=== PATIENT | female | born 1930 | race Caucasian/White ===

== ENCOUNTER 2019-01-17 11:40 | Inpatient (IN) | payer MEDICARE ==
[2019-01-17] MEDS ORDERED: fentaNYL 100 MCG/2 ML SDV IVPUSH ONE (11:49)
--- NOTE | 2019-01-17 11:54 | EDM.PDOC ---
ED HPI GENERAL MEDICAL PROBLEM - General Chief Complaint: Lower Extremity Injury/Pain Stated Complaint: FALL VIA NORTH Time Seen by Provider: 01/17/19 11:40 Source of Information: Reports: Patient, EMS History Limitations: Reports: No Limitations - History of Present Illness INITIAL COMMENTS - FREE TEXT/NARRATIVE: 88-year-old female who was getting out of the bathtub or shower, she was holding onto a faucet for balance in the rug slipped from under her foot. She fell onto her left side, sustaining an injury to the left shoulder and left hip. She was unable to get up so EMS was called, she was transported in to the emergency room with a sling on her left arm and given fentanyl IM for pain control. She is not having problems breathing, has no nausea or vomiting but is having intense pain in her left shoulder and left hip. Onset: Sudden Duration: Hour(s): (Within the last 2 hours) Location: Reports: Upper Extremity, Left, Lower Extremity, Left Quality: Reports: Sharp, Stabbing Worsens with: Reports: Movement Associated Symptoms: Reports: No Other Symptoms Left Arm Pain Score (Numeric/FACES): 8 - Related Data Allergies Allergy/AdvReac Type Severity Reaction Status Date / Time hydrocodone Allergy Hives Verified 01/17/19 13:21 nitrofurantoin Allergy Hives Verified 01/17/19 13:21 sulfamethazine Allergy Hives Verified 01/17/19 13:21 teriparatide Allergy Hives Verified 01/17/19 13:21 tetracycline Allergy Hives Verified 01/17/19 13:21 trovafloxacin Allergy Hives Verified 01/17/19 13:21 Home Meds: Home Meds Aspirin 81 mg PO DAILY 01/17/19 [History] Ca Carbonate/Vitamin D3/Vit K [Citracal Soft Chew] 1 each PO DAILY 01/17/19 [ History] Cyanocobalamin (Vitamin B12) [Vitamin B12] 100 mcg PO DAILY 01/17/19 [History] Cyclobenzaprine [Flexeril] 10 mg PO TID PRN 01/17/19 [History] Ferrous Sulfate 325 mg PO DAILY 01/17/19 [History] Furosemide [Lasix] 20 mg PO DAILY 01/17/19 [History] L.acidoph,Paracasei, B.lactis [Probiotic] 1 each PO DAILY 01/17/19 [History] Lmfol Ca/Acetyl/Mb12/Algal Oil [Cerefolin Nac Caplet] 1 each PO DAILY 01/17/19 [ History] Melatonin 10 mg PO BEDTIME 01/17/19 [History] Metoprolol Tartrate 25 mg PO BID 01/17/19 [History] Olmesartan Medoxomil [Benicar] 20 mg PO DAILY 01/17/19 [History] Oxybutynin 5 mg PO DAILY 01/17/19 [History] Triamcinolone Acetonide [Triamcinolone Acetonide 0.1% Crm] 1 applic TOP TID [History] Vit A/Vit C/Vit E/Zinc/Copper [Preservision] 1 each PO DAILY 01/17/19 [History] Review of Systems - Review of Systems Review Of Systems: See Below Constitutional: Denies: Fever Respiratory: Reports: No Symptoms Cardiovascular: Reports: No Symptoms GI/Abdominal: Reports: No Symptoms Skin: Denies: Bruising Neurological: Denies: Headache ED EXAM, GENERAL - Physical Exam Exam: See Below Exam Limited By: No Limitations General Appearance: Alert, Moderate Distress (Very uncomfortable) Eye Exam: Bilateral Eye: EOMI Head: Atraumatic Neck: Non-Tender Respiratory/Chest: No Respiratory Distress, Lungs Clear GI/Abdominal: Soft, Non-Tender Extremities: Other (Intensely painful to palpation around the proximal left humerus and left hip, the left leg is shortened and externally rotated) Neurological: Alert, Oriented Psychiatric: Anxious Skin Exam: Warm, Dry Course - Vital Signs Last Recorded V/S: Last Vital Signs Temp 95.7 F 01/17/19 11:51 Pulse 68 01/17/19 11:51 Resp 16 01/17/19 11:51 BP 142/84 H 01/17/19 11:51 Pulse Ox 97 01/17/19 11:51 - Orders/Labs/Meds Orders: Active Orders 24 hr Category Date Time Status Patient Status [ADT] Routine ADT 01/17/19 13:37 Active EKG Documentation Completion [RC] ASDIRECTED Care 01/17/19 14:32 Active Soriano Catheter Insertion [Insert Urinary Catheter] [OM. Care 01/17/19 12:30 Ordered PC] Q24H Urinary Catheter Assessment [RC] ASDIRECTED Care 01/17/19 12:16 Active Fluoro Up To 1Hr [CR] Routine Exams 01/17/19 00:00 Taken PATIENT RETYPE [BBK] Routine Lab 01/17/19 14:50 Results RED BLOOD CELLS LP [BBK] Routine Lab 01/17/19 14:50 Results TYPE AND SCREEN [BBK] Routine Lab 01/17/19 14:50 Results EKG 12 Lead [EK] Routine Ther 01/17/19 14:32 Ordered Labs: Laboratory Tests 01/17/19 01/17/19 01/17/19 Range/Units 12:45 12:45 14:50 WBC 10.7 (4.5-11.0) K/uL RBC 3.57 (3.30-5.50) M/uL Hgb 10.8 L (12.0-15.0) g/dL Hct 33.7 L (36.0-48.0) % MCV 94 (80-98) fL MCH 30 (27-31) pg MCHC 32 (32-36) % Plt Count 282 (150-400) K/uL Neut % (Auto) 83 H (36-66) % Lymph % (Auto) 8 L (24-44) % [place] % (Auto) 6 (2-6) % Eos % (Auto) 2 (2-4) % Baso % (Auto) 1 (0-1) % Sodium 137 L (140-148) mmol/L Potassium 4.6 (3.6-5.2) mmol/L Chloride 101 (100-108) mmol/L Carbon Dioxide 29 (21-32) mmol/L Anion Gap 11.6 (5.0-14.0) mmol/L BUN 28 H (7-18) mg/dL Creatinine 1.0 (0.6-1.0) mg/dL Est Cr Clr Drug Dosing 30.76 mL/min Estimated GFR (MDRD) 52 L (>60) Glucose 129 H (74-106) mg/dL Calcium 8.9 (8.5-10.1) mg/dL Total Bilirubin 0.3 (0.2-1.0) mg/dL AST 23 (15-37) U/L ALT 21 (12-78) U/L Alkaline Phosphatase 62 (46-116) U/L Total Protein 6.8 (6.4-8.2) g/dL Albumin 3.5 (3.4-5.0) g/dL Globulin 3.3 (2.3-3.5) g/dL Albumin/Globulin Ratio 1.1 L (1.2-2.2) Blood Type O POSITIVE Gel Antibody Screen Negative Crossmatch See Detail Meds: Medications Discontinued Medications Generic Name Dose Route Start Last Admin Trade Name Edgar PRN Reason Stop Dose Admin Bupivacaine HCl Confirm 01/17/19 13:40 Marcaine 0.5% Administered 01/17/19 13:41 Dose 50 ml .ROUTE .STK-MED ONE Cefazolin Sodium Confirm 01/17/19 14:43 Ancef Administered 01/17/19 14:44 Dose 2 gm .ROUTE .STK-MED ONE Dexamethasone Confirm 01/17/19 13:47 Dexamethasone Administered 01/17/19 13:48 Dose 4 mg .ROUTE .STK-MED ONE Fentanyl 50 mcg 01/17/19 11:49 01/17/19 11:55 Sublimaze IVPUSH 01/17/19 11:50 50 mcg ONETIME ONE Administration Fentanyl Confirm 01/17/19 13:48 Sublimaze Administered 01/17/19 13:49 Dose 250 mcg .ROUTE .STK-MED ONE Glycopyrrolate Confirm 01/17/19 13:47 Robinul Administered 01/17/19 13:48 Dose 1 mg .ROUTE .STK-MED ONE Neostigmine Methylsulfate Confirm 01/17/19 13:47 Neostigmine Administered 01/17/19 13:48 Dose 5 mg .ROUTE .STK-MED ONE Ondansetron HCl Confirm 01/17/19 13:47 Zofran Administered 01/17/19 13:48 Dose 4 mg .ROUTE .STK-MED ONE Propofol Confirm 01/17/19 13:47 Diprivan 20 Ml Administered 01/17/19 13:48 Dose 200 mg .ROUTE .STK-MED ONE Rocuronium [place] Confirm 01/17/19 13:47 Zemuron Administered 01/17/19 13:48 Dose 50 mg .ROUTE .STK-MED ONE Succinylcholine Chloride Confirm 01/17/19 13:47 Quelicin Administered 01/17/19 13:48 Dose 200 mg .ROUTE .STK-MED ONE - Re-Assessments/Exams Free Text/Narrative Re-Assessment/Exam: 01/17/19 11:53 CBC BMP were obtained and an x-ray of the left humerus and left hip were obtained. She was given 50 g of fentanyl IV. 01/17/19 13:10 X-rays confirmed an intertrochanteric fracture of the left hip which is comminuted and displaced, and also a spiral midshaft fracture of the left humerus. A Soriano was placed and clear urine was released. Orthopedics was consult at, after reviewing the x-rays Dr. De Jesus accepted admission for surgical repair. Departure - Departure Time of Disposition: 14:47 Disposition: Admitted As Inpatient 66 Clinical Impression: Intertrochanteric fracture of left hip Qualifiers: Encounter type: initial encounter Fracture type: closed Fracture alignment: displaced Qualified Code(s): S72.142A - Displaced intertrochanteric fracture of left femur, initial encounter for closed fracture Left humeral fracture Qualifiers: Encounter type: initial encounter Humerus Location: shaft Fracture type: closed Fracture morphology: spiral Fracture alignment: displaced Qualified Code( s): S42.342A - Displaced spiral fracture of shaft of humerus, left arm, initial encounter for closed fracture - Discharge Information - My Orders Last 24 Hours: My Active Orders 01/17/19 12:16 Urinary Catheter Assessment [RC] ASDIRECTED 01/17/19 12:30 Soriano Catheter Insertion [Insert Urinary Catheter] [OM.PC] Q24H 01/17/19 13:37 Patient Status [ADT] Routine - Assessment/Plan Last 24 Hours: My Active Orders 01/17/19 12:16 Urinary Catheter Assessment [RC] ASDIRECTED 01/17/19 12:30 Soriano Catheter Insertion [Insert Urinary Catheter] [OM.PC] Q24H 01/17/19 13:37 Patient Status [ADT] Routine
[2019-01-17] MEDS ORDERED: Bupivacaine 0.5% 50 ML MDV ONE (13:40)
[2019-01-17] MEDS ORDERED: Succinylcholine 200 MG/10 ML MDV ONE (13:47)
[2019-01-17] MEDS ORDERED: Glycopyrrolate 0.2 MG/ML 5 ML MDV ONE (13:47)
[2019-01-17] MEDS ORDERED: Dexamethasone 4 MG/ML SDV ONE (13:47)
[2019-01-17] MEDS ORDERED: Neostigmine Methylsulfate 1 MG/ML 5 ML Syringe ONE (13:47)
[2019-01-17] MEDS ORDERED: Ondansetron 4 MG/2 ML SDV ONE (13:47)
[2019-01-17] MEDS ORDERED: Rocuronium 50 MG/5 ML Vial ONE (13:47)
[2019-01-17] MEDS ORDERED: Propofol 200 MG/20 ML SDV ONE (13:47)
[2019-01-17] MEDS ORDERED: fentaNYL 250 MCG/5 ML SDV ONE (13:48)
--- NOTE | 2019-01-17 13:52 | CR ---
Pelvis 1V or 2V CLINICAL HISTORY: Left hip pain FINDINGS: Patient is a comminuted displaced intertrochanteric fracture of left femur. There is abduction of the proximal aspect. Pelvis appears intact. There is degenerative changes in the lumbar spine IMPRESSION: Comminuted displaced intertrochanteric fracture left femur
--- NOTE | 2019-01-17 13:54 | CR ---
Humerus Lt CLINICAL HISTORY: Fall, pain FINDINGS: There is a displaced to the fracture of the left humerus at the junction of the proximal and middle third. There is angulation glenohumeral joint and elbow appear intact IMPRESSION: Displaced fracture left humerus
[2019-01-17] MEDS ORDERED: ceFAZolin 1 GM Vial ONE (14:43)
[2019-01-17] MEDS ORDERED: Magnesium Hydroxide 400 MG/5 ML Susp 30 ML Cup PO PRN (18:34)
[2019-01-17] MEDS ORDERED: Ondansetron 4 MG/2 ML SDV IVPUSH PRN (18:34)
[2019-01-17] MEDS ORDERED: Morphine 2 MG/ML Syringe IVPUSH PRN (18:34)
[2019-01-17] MEDS: Sodium Chloride 0.9% 1,000 ML IV SCH (20:13)
[2019-01-17] MEDS ORDERED: Non-Formulary Medication 1 Each (Melatonin [Melatonin] 10 MG) PO SCH ×2 (21:00)
[2019-01-17] MEDS: Acetaminophen/oxyCODONE 325-5 MG Tab PO PRN (21:28)
[2019-01-17] MEDS: Metoprolol Tartrate 25 MG Tab PO SCH ×2 (21:29→21:37)
[2019-01-17] MEDS ORDERED: Sodium Chloride 0.9% 500 ML IV ONE (21:51)
--- NOTE | 2019-01-17 22:59 | CRLCR ---
INDICATION: Postop ORIF left humerus fracture TECHNIQUE: Two views left humerus, 10:03 p.m. COMPARISON: 12:05 p.m. FINDINGS: Bones: Internal fixation hardware transfixes an aligned fracture of the proximal humeral shaft. Joint spaces: Unremarkable. Soft tissues: Extensive soft tissue edema IMPRESSION: Internal fixation yolette transfixes an aligned fracture of the proximal humeral shaft. Extensive adjacent edema. Dictated by Jemal Bang MD @ 01/17/2019 10:58:29 PM Dictated by: Jemal Bang MD @ 01/17/2019 22:58:35 (Electronically Signed)
[2019-01-18] MEDS ORDERED: Sodium Chloride 0.9% 500 ML IV ONE (00:21)
[2019-01-18] MEDS: Sodium Chloride 0.9% 1,000 ML IV SCH ×4 (01:04→21:14)
[2019-01-18] MEDS ORDERED: Furosemide 20 MG/2 ML VIAL IVPUSH ONE (02:16)
[2019-01-18] MEDS: Acetaminophen/oxyCODONE 325-5 MG Tab PO PRN ×4 (06:30→18:42)
[2019-01-18] MEDS: Furosemide 20 MG Tab PO SCH (08:39)
[2019-01-18] MEDS: Metoprolol Tartrate 25 MG Tab PO SCH ×2 (08:40→21:11)
[2019-01-18] MEDS: Losartan 50 MG Tab PO SCH (08:40)
[2019-01-18] MEDS: Oxybutynin 5 MG Tab PO SCH (08:41)
[2019-01-18] MEDS: Cyanocobalamin (Vitamin B12) 1,000 MCG Tab PO SCH (08:41)
[2019-01-18] MEDS: Enoxaparin 30 MG/0.3 ML Syringe SUBCUT SCH (08:42)
[2019-01-18] MEDS ORDERED: Non-Formulary Medication 1 Each (Cyanocobalamin (Vitamin B12) [Vitamin B12] 100 MCG) PO SCH ×2 (09:00)
--- NOTE | 2019-01-18 11:35 | PCM.CONS ---
H&P History of Present Illness - General Date of Service: 01/18/19 Admit Problem/Dx: Admission Diagnosis/Problem Admission Diagnosis/Problem Hip fracture requiring operative repair Source of Information: Patient, Family, Provider, RN Notes Reviewed History Limitations: Reports: No Limitations - History of Present Illness Initial Comments - Free Text/Narative: Ms. Adair is an 88-year-old woman who I been asked to see by Dr. De Jesus for assistance in medical management postoperatively. She unfortunately fell yesterday experiencing a fracture of her left hip as well as her left humerus. Both of these fractures required surgical repair and she was taken to the operating room yesterday by Dr. De Jesus. She is done well in the initial postoperative course other than some low urine outputs. She denies any symptoms of chest pain or pressure, shortness of breath, or nausea vomiting. She was relatively healthy prior to the fall and denies any significant cardiac or pulmonary disease. Left Arm Pain Score (Numeric/FACES): 2 - Related Data Allergies/Adverse Reactions: Allergies Allergy/AdvReac Type Severity Reaction Status Date / Time hydrocodone Allergy Hives Verified 01/17/19 13:21 nitrofurantoin Allergy Hives Verified 01/17/19 13:21 sulfamethazine Allergy Hives Verified 01/17/19 13:21 teriparatide Allergy Hives Verified 01/17/19 13:21 tetracycline Allergy Hives Verified 01/17/19 13:21 trovafloxacin Allergy Hives Verified 01/17/19 13:21 Home Medications: Home Meds Aspirin 81 mg PO DAILY 01/17/19 [History] Ca Carbonate/Vitamin D3/Vit K [Citracal Soft Chew] 1 each PO DAILY 01/17/19 [ History] Cyanocobalamin (Vitamin B12) [Vitamin B12] 100 mcg PO DAILY 01/17/19 [History] Cyclobenzaprine [Flexeril] 10 mg PO TID PRN 01/17/19 [History] Ferrous Sulfate 325 mg PO DAILY 01/17/19 [History] Furosemide [Lasix] 20 mg PO DAILY 01/17/19 [History] L.acidoph,Paracasei, B.lactis [Probiotic] 1 each PO DAILY 01/17/19 [History] Lmfol Ca/Acetyl/Mb12/Algal Oil [Cerefolin Nac Caplet] 1 each PO DAILY 01/17/19 [ History] Melatonin 10 mg PO BEDTIME 01/17/19 [History] Metoprolol Tartrate 25 mg PO BID 01/17/19 [History] Olmesartan Medoxomil [Benicar] 20 mg PO DAILY 01/17/19 [History] Oxybutynin 5 mg PO DAILY 01/17/19 [History] Triamcinolone Acetonide [Triamcinolone Acetonide 0.1% Crm] 1 applic TOP TID [History] Vit A/Vit C/Vit E/Zinc/Copper [Preservision] 1 each PO DAILY 01/17/19 [History] Past Medical History HEENT History: Reports: Cataract Cardiovascular History: Reports: Heart Murmur, Hypertension Gastrointestinal History: Reports: GERD Genitourinary History: Reports: UTI, Recurrent 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: Musculoskeletal History: Reports: Fracture - Past Surgical History HEENT Surgical History: Reports: Cataract Surgery, Naso-Sinus Surgery Social & Family History - Tobacco Use Smoking Status *Q: Never Smoker - Caffeine Use Caffeine Use: Reports: None - Recreational Drug Use Recreational Drug Use: No H&P Review of Systems - Review of Systems: Review Of Systems: See Below General: Denies: Fever, Chills Pulmonary: Reports: No Symptoms Cardiovascular: Reports: No Symptoms Gastrointestinal: Reports: No Symptoms Musculoskeletal: Reports: Other (Left arm and hip pain) Exam - Exam Exam: See Below - Vital Signs Vital Signs: Last Vital Signs Temp 96.9 F 01/18/19 05:40 Pulse 93 01/18/19 08:40 Resp 12 01/18/19 05:40 BP 102/53 L 01/18/19 08:40 Pulse Ox 100 01/18/19 05:40 Weight: 119 lb 15.997 oz - Exam Neck: Supple, Trachea Midline, +2 Carotid Pulse wo Bruit Lungs: Clear to Auscultation, Normal Respiratory Effort Cardiovascular: Regular Rate, Regular Rhythm, Normal S1, Normal S2. No: Systolic Murmur, Diastolic Murmur GI/Abdominal Exam: Soft, Non-Tender, No Organomegaly, No Distention Extremities: No Pedal Edema, Normal Capillary Refill - Patient Data Lab Results Last 24 hrs: Laboratory Results - last 24 hr 01/17/19 01/17/19 01/17/19 Range/Units 12:45 12:45 14:50 WBC 10.7 (4.5-11.0) K/uL RBC 3.57 (3.30-5.50) M/uL Hgb 10.8 L (12.0-15.0) g/dL Hct 33.7 L (36.0-48.0) % MCV 94 (80-98) fL MCH 30 (27-31) pg MCHC 32 (32-36) % Plt Count 282 (150-400) K/uL Neut % (Auto) 83 H (36-66) % Lymph % (Auto) 8 L (24-44) % [place] % (Auto) 6 (2-6) % Eos % (Auto) 2 (2-4) % Baso % (Auto) 1 (0-1) % Sodium 137 L (140-148) mmol/L Potassium 4.6 (3.6-5.2) mmol/L Chloride 101 (100-108) mmol/L Carbon Dioxide 29 (21-32) mmol/L Anion Gap 11.6 (5.0-14.0) mmol/L BUN 28 H (7-18) mg/dL Creatinine 1.0 (0.6-1.0) mg/dL Est Cr Clr Drug Dosing 30.76 mL/min Estimated GFR (MDRD) 52 L (>60) Glucose 129 H (74-106) mg/dL Calcium 8.9 (8.5-10.1) mg/dL Total Bilirubin 0.3 (0.2-1.0) mg/dL AST 23 (15-37) U/L ALT 21 (12-78) U/L Alkaline Phosphatase 62 (46-116) U/L Total Protein 6.8 (6.4-8.2) g/dL Albumin 3.5 (3.4-5.0) g/dL Globulin 3.3 (2.3-3.5) g/dL Albumin/Globulin Ratio 1.1 L (1.2-2.2) Blood Type O POSITIVE Gel Antibody Screen Negative Crossmatch See Detail 01/17/19 01/18/19 01/18/19 Range/Units 18:35 02:31 02:31 WBC 11.2 H 9.0 (4.5-11.0) K/uL RBC 2.78 L 2.51 L (3.30-5.50) M/uL Hgb 8.3 L D 7.6 L (12.0-15.0) g/dL Hct 26.6 L 24.0 L (36.0-48.0) % MCV 96 96 (80-98) fL MCH 30 30 (27-31) pg MCHC 31 L 32 (32-36) % Plt Count 254 253 (150-400) K/uL Neut % (Auto) 85 H (36-66) % Lymph % (Auto) 7 L (24-44) % [place] % (Auto) 9 H (2-6) % Eos % (Auto) 0 L (2-4) % Baso % (Auto) 0 (0-1) % Sodium 137 L (140-148) mmol/L Potassium 5.6 H (3.6-5.2) mmol/L Chloride 104 (100-108) mmol/L Carbon Dioxide 24 (21-32) mmol/L Anion Gap 14.6 H (5.0-14.0) mmol/L BUN 34 H (7-18) mg/dL Creatinine 1.6 H D (0.6-1.0) mg/dL Est Cr Clr Drug Dosing 19.06 mL/min Estimated GFR (MDRD) 30 L (>60) Glucose 157 H (74-106) mg/dL Calcium 7.8 L (8.5-10.1) mg/dL Total Bilirubin (0.2-1.0) mg/dL AST (15-37) U/L ALT (12-78) U/L Alkaline Phosphatase (46-116) U/L Total Protein (6.4-8.2) g/dL Albumin (3.4-5.0) g/dL Globulin (2.3-3.5) g/dL Albumin/Globulin Ratio (1.2-2.2) Blood Type Gel Antibody Screen Crossmatch 01/18/19 Range/Units 06:30 WBC 8.1 (4.5-11.0) K/uL RBC 3.87 (3.30-5.50) M/uL Hgb 11.6 L D (12.0-15.0) g/dL Hct 35.0 L (36.0-48.0) % MCV 90 (80-98) fL MCH 30 (27-31) pg MCHC 33 (32-36) % Plt Count 202 (150-400) K/uL Neut % (Auto) (36-66) % Lymph % (Auto) (24-44) % [place] % (Auto) (2-6) % Eos % (Auto) (2-4) % Baso % (Auto) (0-1) % Sodium (140-148) mmol/L Potassium (3.6-5.2) mmol/L Chloride (100-108) mmol/L Carbon Dioxide (21-32) mmol/L Anion Gap (5.0-14.0) mmol/L BUN (7-18) mg/dL Creatinine (0.6-1.0) mg/dL Est Cr Clr Drug Dosing mL/min Estimated GFR (MDRD) (>60) Glucose (74-106) mg/dL Calcium (8.5-10.1) mg/dL Total Bilirubin (0.2-1.0) mg/dL AST (15-37) U/L ALT (12-78) U/L Alkaline Phosphatase (46-116) U/L Total Protein (6.4-8.2) g/dL Albumin (3.4-5.0) g/dL Globulin (2.3-3.5) g/dL Albumin/Globulin Ratio (1.2-2.2) Blood Type Gel Antibody Screen Crossmatch Result Diagrams: 01/18/19 06:30 01/18/19 02:31 Consult PN Assessment/Plan Problem List Initiated/Reviewed/Updated: Yes My Orders Last 24 Hours: My Active Orders 01/19/19 05:00 BASIC METABOLIC PANEL,BMP [CHEM] Timed Plan: ASSESSMENT AND RECOMMENDATIONS LEFT HUMERUS AND HIP FRACTURES-status post surgical repair yesterday by Dr. De Jesus. Other than somewhat low urine output earlier today she has been stable during the initial postoperative period. -postoperative care per Dr. De Jesus LOW URINE OUTPUT-likely secondary to third spacing related to recent surgery and fractures. Over the past few hours urine output has improved. -Continue to monitor closely HYPERTENSION-overall blood pressure has remained stable -Continue outpatient medications Requesting Provider: WET COTTON FEEDER Date Consult Requested: 01/18/19 Reason for Consult: Post-op medical management Patient History Reviewed: Yes Admission H&P Reviewed: Yes
[2019-01-18] MEDS ORDERED: Sodium Chloride 0.9% 1,000 ML IV SCH (18:00)
[2019-01-18] MEDS: Melatonin 3 MG Tab PO SCH (21:11)
--- NOTE | 2019-01-18 22:46 | PCM.SN ---
- Free Text/Narrative Note: call to ICU for Med-Surg Overflow Mrs. Adair's urine output had been declining early this afternoon, given a 250ml fluid bolus over 4 hours. O: blood pressure 109/48, urine output 190ml since 7 pm. lungs are clear, no distress, resting comfortably A: stable, urine output 60ml/hr P: will continue present plan of care, if blood pressure systolic less than 100 or urine output less than 30 ml per hour, will consider repeating a second fluid bolus of 250ml over 4 hours.
[2019-01-19] MEDS: Acetaminophen/oxyCODONE 325-5 MG Tab PO PRN ×4 (04:20→17:39)
[2019-01-19] MEDS: Sodium Chloride 0.9% 1,000 ML IV SCH ×2 (04:29→13:43)
[2019-01-19] MEDS: Losartan 50 MG Tab PO SCH (08:38)
[2019-01-19] MEDS: Metoprolol Tartrate 25 MG Tab PO SCH ×2 (08:39→21:06)
[2019-01-19] MEDS: Enoxaparin 30 MG/0.3 ML Syringe SUBCUT SCH (08:39)
[2019-01-19] MEDS: Furosemide 20 MG Tab PO SCH (08:39)
[2019-01-19] MEDS: Cyanocobalamin (Vitamin B12) 1,000 MCG Tab PO SCH (08:40)
[2019-01-19] MEDS: Oxybutynin 5 MG Tab PO SCH (08:40)
[2019-01-19] MEDS ORDERED: Calcium Gluconate 2 GM in Sodium Chloride 0.9% 100 ML IV ONE ×2 (09:30→18:00)
--- NOTE | 2019-01-19 10:40 | PCM.HP.2 ---
H&P History of Present Illness - General Date of Service: 01/17/19 Admit Problem/Dx: Admission Diagnosis/Problem Admission Diagnosis/Problem Hip fracture requiring operative repair Source of Information: Patient, Family History Limitations: Reports: No Limitations - History of Present Illness Initial Comments - Free Text/Narative: 88 year old white female visiting the area from [place] fell in the bathroom when a rug slipped out from under her as she was exiting the shower. Landed onto her left side and was unable to get up. Had severe pain in her left upper arm and left hip. Transported via ambulance to ED. No syncope, LOC or head trauma. Evaluation in the ED revealed a displaced intertrochanteric fracture of the left hip and a comminuted fracture of the left humeral shaft. She is admitted for fixation of both fractures. She lives independently and is fairly active. No significant comorbidities. Onset of Symptoms: Reports: Today Location: Reports: Upper Extremity, Left, Lower Extremity, Left Quality: Reports: Sharp, Stabbing Severity: Severe Improves with: Reports: None Worsens with: Reports: Movement Associated Symptoms: Reports: No Other Symptoms Left Arm Pain Score (Numeric/FACES): 3 Left Leg Pain Score (Numeric/FACES): 3 - Related Data Allergies/Adverse Reactions: Allergies Allergy/AdvReac Type Severity Reaction Status Date / Time hydrocodone Allergy Hives Verified 01/17/19 13:21 nitrofurantoin Allergy Hives Verified 01/17/19 13:21 sulfamethazine Allergy Hives Verified 01/17/19 13:21 teriparatide Allergy Hives Verified 01/17/19 13:21 tetracycline Allergy Hives Verified 01/17/19 13:21 trovafloxacin Allergy Hives Verified 01/17/19 13:21 Home Medications: Home Meds Aspirin 81 mg PO DAILY 01/17/19 [History] Ca Carbonate/Vitamin D3/Vit K [Citracal Soft Chew] 1 each PO DAILY 01/17/19 [ History] Cyanocobalamin (Vitamin B12) [Vitamin B12] 100 mcg PO DAILY 01/17/19 [History] Cyclobenzaprine [Flexeril] 10 mg PO TID PRN 01/17/19 [History] Ferrous Sulfate 325 mg PO DAILY 01/17/19 [History] Furosemide [Lasix] 20 mg PO DAILY 01/17/19 [History] L.acidoph,Paracasei, B.lactis [Probiotic] 1 each PO DAILY 01/17/19 [History] Lmfol Ca/Acetyl/Mb12/Algal Oil [Cerefolin Nac Caplet] 1 each PO DAILY 01/17/19 [ History] Melatonin 10 mg PO BEDTIME 01/17/19 [History] Metoprolol Tartrate 25 mg PO BID 01/17/19 [History] Olmesartan Medoxomil [Benicar] 20 mg PO DAILY 01/17/19 [History] Oxybutynin 5 mg PO DAILY 01/17/19 [History] Triamcinolone Acetonide [Triamcinolone Acetonide 0.1% Crm] 1 applic TOP TID [History] Vit A/Vit C/Vit E/Zinc/Copper [Preservision] 1 each PO DAILY 01/17/19 [History] Past Medical History HEENT History: Reports: Cataract Cardiovascular History: Reports: Heart Murmur, Hypertension Gastrointestinal History: Reports: GERD Genitourinary History: Reports: UTI, 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 Exam - Exam Exam: See Below - Vital Signs Vital Signs: Last Vital Signs Temp 35.8 C 01/19/19 10:00 Pulse 74 01/19/19 10:00 Resp 11 L 01/19/19 08:00 BP 118/46 L 01/19/19 08:39 Pulse Ox 96 01/19/19 08:00 Weight: 54.431 kg - Exam General: Alert, Oriented, 4 HEENT: PERRLA, Hearing Intact, Mucosa Moist & [place], Nares Patent, Normal Nasal Septum, Posterior Pharynx Clear, Conjunctiva Clear, EOMI, EACs Clear, TMs Clear Neck: Supple, Trachea Midline, 2 Lungs: Clear to Auscultation, Normal Respiratory Effort Cardiovascular: Regular Rate, Regular Rhythm GI/Abdominal Exam: Normal Bowel Sounds, Soft, Non-Tender, No Organomegaly, No Distention, No Abnormal Bruit, No Mass, Pelvis Stable (Female) Exam: Deferred Rectal (Female) Exam: Deferred Back Exam: Normal Inspection Extremities: Arm Pain, Leg Pain, Other (left leg short and externally rotated, pain with any motion, left arm with obviuos instability of humerus, NV intact) Peripheral Pulses: 1+: Dorsalis Pedis (L), 2+: Radial (L), Radial (R), Dorsalis Pedis (R) Skin: Warm, Dry Neurological: Cranial Nerves Intact, Reflexes Equal Bilateral Neuro Extensive - Mental Status: Alert, Oriented x3, Normal Mood/Affect, Normal Cognition Neuro Extensive - Motor, Sensory, Reflexes: CN II-XII Intact, Normal Gait, Normal Reflexes Psychiatric: Alert, Normal Affect, Normal Mood - Patient Data Lab Results Last 24 hrs: Laboratory Results - last 24 hr 01/19/19 01/19/19 Range/Units 05:00 08:35 Sodium 133 L (140-148) mmol/L Potassium 4.5 (3.6-5.2) mmol/L Chloride 103 (100-108) mmol/L Carbon Dioxide 23 (21-32) mmol/L Anion Gap 11.5 (5.0-14.0) mmol/L BUN 41 H (7-18) mg/dL Creatinine 1.7 H (0.6-1.0) mg/dL Est Cr Clr Drug Dosing 17.93 mL/min Estimated GFR (MDRD) 28 L (>60) Glucose 100 (74-106) mg/dL Calcium 6.8 L* (8.5-10.1) mg/dL POC WB Ioniz Calcium 0.96 L* (1.12-1.32) mmol/L Result Diagrams: 01/18/19 06:30 01/19/19 05:00 - Problem List (1) Intertrochanteric fracture of left hip SNOMED Code(s): 089142163 ICD Code: S72.142A - DISPLACED INTERTROCHANTERIC FRACTURE OF LEFT FEMUR, INIT Status: Acute Current Visit: Yes Qualifiers: Encounter type: initial encounter Fracture type: closed Fracture alignment: displaced Qualified Code(s): S72.142A - Displaced intertrochanteric fracture of left femur, initial encounter for closed fracture (2) Left humeral fracture SNOMED Code(s): 98886988 ICD Code: S42.302A - UNSP FRACTURE OF SHAFT OF HUMERUS, LEFT ARM, INIT Status: Acute Current Visit: Yes Qualifiers: Encounter type: initial encounter Humerus Location: shaft Fracture type: closed Fracture morphology: comminuted Fracture alignment: displaced Qualified Code(s): S42.352A - Displaced comminuted fracture of shaft of humerus , left arm, initial encounter for closed fracture Problem List Initiated/Reviewed/Updated: Yes Orders Last 24hrs: Active Orders 24 hr Category Date Time Status Transfer Patient (Change bed) [ADT] Routine ADT 01/19/19 07:33 Ordered Calcium Gluconate 2 gm Med 01/19/19 09:30 Active Sodium Chloride 0.9% [Normal Saline] 100 ml IV ONETIME Melatonin Med 01/18/19 21:00 Active 9 mg PO BEDTIME Medication Orders Cyanocobalamin (Vitamin B12) 250 mcg PO DAILY [facility] Last Admin: 01/19/19 08:40 Dose: 250 mcg Admin: 01/18/19 08:41 Dose: 250 mcg Docusate Sodium (Colace) 100 mg PO BID PRN PRN Reason: Constipation Enoxaparin Sodium (Lovenox) 30 mg SUBCUT DAILY [facility] Last Admin: 01/19/19 08:39 Dose: 30 mg Admin: 01/18/19 08:42 Dose: 30 mg Furosemide (Lasix) 20 mg PO DAILY [facility] Last Admin: 01/19/19 08:39 Dose: 20 mg Admin: 01/18/19 08:39 Dose: 20 mg Sodium Chloride (Normal Saline) 1,000 mls @ 125 mls/hr IV ASDIRECTED [facility] Last Admin: 01/19/19 04:29 Dose: 125 mls/hr Infusion: 01/19/19 04:29 Dose: 125 mls/hr Admin: 01/18/19 21:14 Dose: 125 mls/hr Infusion: 01/18/19 21:14 Dose: 125 mls/hr Admin: 01/18/19 16:41 Dose: 125 mls/hr Infusion: 01/18/19 16:41 Dose: 125 mls/hr Admin: 01/18/19 08:42 Dose: 125 mls/hr Infusion: 01/18/19 08:42 Dose: 125 mls/hr Admin: 01/18/19 01:04 Dose: 125 mls/hr Infusion: 01/18/19 01:04 Dose: 125 mls/hr Admin: 01/17/19 20:13 Dose: 125 mls/hr Calcium Gluconate 2 gm/ Sodium (Chloride) 120 mls @ 100 mls/hr IV ONETIME ONE Stop: 01/19/19 10:41 Last Admin: 01/19/19 09:30 Dose: 100 mls/hr Losartan Potassium (Cozaar) 50 mg PO DAILY [facility] Last Admin: 01/19/19 08:38 Dose: 50 mg Admin: 01/18/19 08:40 Dose: 50 mg Magnesium Hydroxide (Milk Of Magnesia) 30 ml PO BID PRN PRN Reason: Constipation Melatonin (Melatonin) 9 mg PO BEDTIME [facility] Last Admin: 01/18/19 21:11 Dose: 9 mg Metoprolol Tartrate (Lopressor) 25 mg PO BID [facility] Last Admin: 01/19/19 08:39 Dose: 25 mg Admin: 01/18/19 21:11 Dose: Not Given Admin: 01/18/19 08:40 Dose: 25 mg Admin: 01/17/19 21:37 Dose: Morphine Sulfate (Morphine) 2 mg IVPUSH Q1H PRN PRN Reason: Breakthrough Pain Last Admin: 01/17/19 20:11 Dose: 2 mg Ondansetron HCl (Zofran) 4 mg IVPUSH Q6H PRN PRN Reason: Nausea/Vomiting Oxybutynin Chloride (Oxybutynin) 5 mg PO DAILY [facility] Last Admin: 01/19/19 08:40 Dose: 5 mg Admin: 01/18/19 08:41 Dose: 5 mg Oxycodone/Acetaminophen (Percocet 325-5 Mg) 1 - 2 tab PO Q4H PRN PRN Reason: Pain Last Admin: 01/19/19 08:52 Dose: 1 tab Admin: 01/19/19 04:20 Dose: 1 tab Admin: 01/18/19 18:42 Dose: 1 tab Admin: 01/18/19 14:51 Dose: 1 tab Admin: 01/18/19 10:33 Dose: 1 tab Admin: 01/18/19 06:30 Dose: 1 tab Admin: 01/17/19 21:28 Dose: 2 tab Tramadol HCl (Ultram) 50 mg PO Q4H PRN PRN Reason: Pain (mild 1-3) Assessment/Plan Comment:: Displaced IT fracture left hip and displaced humeral shaft fracture. It is my recommendation that both fractures be treated with internal fixation. Plan intramedullary fixation of left hip with Synthes TFNa and ORIF of humerus with plating. Discussed the fractures and treatment options with the patient and her daughter. Both agree with the proposed plan. Will ask the Hospitalist Service to follow along for assistance with post-op management.
--- NOTE | 2019-01-19 10:55 | PCM.SURGPN ---
- General Info Date of Service: 01/18/19 POD#: 1 Post-Op Diagnosis: IT fx left hip and left humeral shaft fx Functional Status: Reports: Pain Controlled, Tolerating Diet - Review of Systems General: Reports: No Symptoms HEENT: Reports: No Symptoms Pulmonary: Reports: No Symptoms Cardiovascular: Reports: No Symptoms Gastrointestinal: Reports: No Symptoms Genitourinary: Reports: No Symptoms, Other (Soriano in place) Musculoskeletal: Reports: Shoulder Pain, Arm Pain, Leg Pain Skin: Reports: No Symptoms Neurological: Reports: No Symptoms Psychiatric: Reports: No Symptoms - Patient Data Vitals - Most Recent: Last Vital Signs Temp 35.8 C 01/19/19 10:00 Pulse 74 01/19/19 10:00 Resp 11 L 01/19/19 08:00 BP 118/46 L 01/19/19 08:39 Pulse Ox 96 01/19/19 08:00 Weight - Most Recent: 54.431 kg I&O - Last 24 Hours: Intake & Output 01/18/19 01/19/19 01/19/19 22:59 06:59 14:59 Intake Total 1960 2002 Output Total 415 640 Balance 1545 1363 Lab Results Last 24 Hrs: Laboratory Results - last 24 hr 01/19/19 01/19/19 Range/Units 05:00 08:35 Sodium 133 L (140-148) mmol/L Potassium 4.5 (3.6-5.2) mmol/L Chloride 103 (100-108) mmol/L Carbon Dioxide 23 (21-32) mmol/L Anion Gap 11.5 (5.0-14.0) mmol/L BUN 41 H (7-18) mg/dL Creatinine 1.7 H (0.6-1.0) mg/dL Est Cr Clr Drug Dosing 17.93 mL/min Estimated GFR (MDRD) 28 L (>60) Glucose 100 (74-106) mg/dL Calcium 6.8 L* (8.5-10.1) mg/dL POC WB Ioniz Calcium 0.96 L* (1.12-1.32) mmol/L Med Orders - Current: Current Medications Cyanocobalamin (Vitamin B12) 250 mcg PO DAILY [facility] Last Admin: 01/19/19 08:40 Dose: 250 mcg Docusate Sodium (Colace) 100 mg PO BID PRN PRN Reason: Constipation Enoxaparin Sodium (Lovenox) 30 mg SUBCUT DAILY [facility] Last Admin: 01/19/19 08:39 Dose: 30 mg Furosemide (Lasix) 20 mg PO DAILY [facility] Last Admin: 01/19/19 08:39 Dose: 20 mg Sodium Chloride (Normal Saline) 1,000 mls @ 125 mls/hr IV ASDIRECTED [facility] Last Admin: 01/19/19 04:29 Dose: 125 mls/hr Losartan Potassium (Cozaar) 50 mg PO DAILY [facility] Last Admin: 01/19/19 08:38 Dose: 50 mg Magnesium Hydroxide (Milk Of Magnesia) 30 ml PO BID PRN PRN Reason: Constipation Melatonin (Melatonin) 9 mg PO BEDTIME [facility] Last Admin: 01/18/19 21:11 Dose: 9 mg Metoprolol Tartrate (Lopressor) 25 mg PO BID [facility] Last Admin: 01/19/19 08:39 Dose: 25 mg Morphine Sulfate (Morphine) 2 mg IVPUSH Q1H PRN PRN Reason: Breakthrough Pain Last Admin: 01/17/19 20:11 Dose: 2 mg Ondansetron HCl (Zofran) 4 mg IVPUSH Q6H PRN PRN Reason: Nausea/Vomiting Oxybutynin Chloride (Oxybutynin) 5 mg PO DAILY [facility] Last Admin: 01/19/19 08:40 Dose: 5 mg Oxycodone/Acetaminophen (Percocet 325-5 Mg) 1 - 2 tab PO Q4H PRN PRN Reason: Pain Last Admin: 01/19/19 08:52 Dose: 1 tab Tramadol HCl (Ultram) 50 mg PO Q4H PRN PRN Reason: Pain (mild 1-3) Discontinued Medications Bupivacaine HCl (Marcaine 0.5%) Confirm Administered Dose 50 ml .ROUTE .STK-MED ONE Stop: 01/17/19 13:41 Cefazolin Sodium (Ancef) Confirm Administered Dose 2 gm .ROUTE .STK-MED ONE Stop: 01/17/19 14:44 Dexamethasone (Dexamethasone) Confirm Administered Dose 4 mg .ROUTE .STK-MED ONE Stop: 01/17/19 13:48 Fentanyl (Sublimaze) 50 mcg IVPUSH ONETIME ONE Stop: 01/17/19 11:50 Last Admin: 01/17/19 11:55 Dose: 50 mcg Fentanyl (Sublimaze) Confirm Administered Dose 250 mcg .ROUTE .STK-MED ONE Stop: 01/17/19 13:49 Furosemide (Lasix) 20 mg IVPUSH ONETIME ONE Stop: 01/18/19 02:17 Last Admin: 01/18/19 04:12 Dose: 20 mg Glycopyrrolate (Robinul) Confirm Administered Dose 1 mg .ROUTE .STK-MED ONE Stop: 01/17/19 13:48 Sodium Chloride (Normal Saline) 500 mls @ 500 mls/hr IV .BOLUS ONE Stop: 01/17/19 22:50 Last Admin: 01/17/19 22:11 Dose: 500 mls/hr Sodium Chloride (Normal Saline) 500 mls @ 999 mls/hr IV .BOLUS ONE Stop: 01/18/19 00:51 Last Admin: 01/18/19 00:30 Dose: 999 mls/hr Sodium Chloride (Normal Saline) 1,000 mls @ 240 mls/hr IV ASDIRECTED [facility] Stop: 01/18/19 22:09 Calcium Gluconate 2 gm/ Sodium (Chloride) 120 mls @ 100 mls/hr IV ONETIME ONE Stop: 01/19/19 10:41 Last Admin: 01/19/19 09:30 Dose: 100 mls/hr Neostigmine Methylsulfate (Neostigmine) Confirm Administered Dose 5 mg .ROUTE .STK-MED ONE Stop: 01/17/19 13:48 Non-Formulary Medication (Melatonin [Melatonin]) 10 mg PO BEDTIME [facility] Non-Formulary Medication (Cyanocobalamin (Vitamin B12) [Vitamin B12]) 100 mcg PO DAILY [facility] Ondansetron HCl (Zofran) Confirm Administered Dose 4 mg .ROUTE .STK-MED ONE Stop: 01/17/19 13:48 Propofol (Diprivan 20 Ml) Confirm Administered Dose 200 mg .ROUTE .STK-MED ONE Stop: 01/17/19 13:48 Rocuronium Panaca (Zemuron) Confirm Administered Dose 50 mg .ROUTE .STK-MED ONE Stop: 01/17/19 13:48 Succinylcholine Chloride (Quelicin) Confirm Administered Dose 200 mg .ROUTE .STK -MED ONE Stop: 01/17/19 13:48 - Exam Wound/Incisions: Dressing Dry and Intact General: Alert, Oriented HEENT: Pupils Equal Neck: Supple Lungs: Clear to Auscultation, Normal Respiratory Effort Cardiovascular: Regular Rate, Regular Rhythm GI/Abdominal Exam: Normal Bowel Sounds, Soft, Non-Tender, No Organomegaly, No Distention, No Abnormal Bruit, No Mass, Pelvis Stable Extremities: Other (NV intact left arm and hand, slight decrease in DP pulse on left compared to right) Skin: Warm, Dry, Intact Neurological: No New Focal Deficit Psy/Mental Status: Alert, Normal Affect, Normal Mood - Problem List & Annotations (1) Intertrochanteric fracture of left hip SNOMED Code(s): 287461300 Code(s): S72.142A - DISPLACED INTERTROCHANTERIC FRACTURE OF LEFT FEMUR, INIT Status: Acute Current Visit: Yes Qualifiers: Encounter type: initial encounter Fracture type: closed Fracture alignment: displaced Qualified Code(s): S72.142A - Displaced intertrochanteric fracture of left femur, initial encounter for closed fracture (2) Left humeral fracture SNOMED Code(s): 95919282 Code(s): S42.302A - UNSP FRACTURE OF SHAFT OF HUMERUS, LEFT ARM, INIT Status: Acute Current Visit: Yes Qualifiers: Encounter type: initial encounter Humerus Location: shaft Fracture type: closed Fracture morphology: comminuted Fracture alignment: displaced Qualified Code(s): S42.352A - Displaced comminuted fracture of shaft of humerus , left arm, initial encounter for closed fracture (3) Postoperative anemia due to acute blood loss SNOMED Code(s): 41879501725155073 Code(s): D62 - ACUTE POSTHEMORRHAGIC ANEMIA Status: Acute Current Visit: Yes Annotation/Comment:: Secondary to fractures and surgery - Problem List Review Problem List Initiated/Reviewed/Updated: Yes - My Orders Last 24 Hours: Active Orders 24 hr Category Date Time Status Transfer Patient (Change bed) [ADT] Routine ADT 01/19/19 07:33 Ordered Melatonin Med 01/18/19 21:00 Active 9 mg PO BEDTIME Medication Orders Cyanocobalamin (Vitamin B12) 250 mcg PO DAILY [facility] Last Admin: 01/19/19 08:40 Dose: 250 mcg Admin: 01/18/19 08:41 Dose: 250 mcg Docusate Sodium (Colace) 100 mg PO BID PRN PRN Reason: Constipation Enoxaparin Sodium (Lovenox) 30 mg SUBCUT DAILY [facility] Last Admin: 01/19/19 08:39 Dose: 30 mg Admin: 01/18/19 08:42 Dose: 30 mg Furosemide (Lasix) 20 mg PO DAILY [facility] Last Admin: 01/19/19 08:39 Dose: 20 mg Admin: 01/18/19 08:39 Dose: 20 mg Sodium Chloride (Normal Saline) 1,000 mls @ 125 mls/hr IV ASDIRECTED [facility] Last Admin: 01/19/19 04:29 Dose: 125 mls/hr Infusion: 01/19/19 04:29 Dose: 125 mls/hr Admin: 01/18/19 21:14 Dose: 125 mls/hr Infusion: 01/18/19 21:14 Dose: 125 mls/hr Admin: 01/18/19 16:41 Dose: 125 mls/hr Infusion: 01/18/19 16:41 Dose: 125 mls/hr Admin: 01/18/19 08:42 Dose: 125 mls/hr Infusion: 01/18/19 08:42 Dose: 125 mls/hr Admin: 01/18/19 01:04 Dose: 125 mls/hr Infusion: 01/18/19 01:04 Dose: 125 mls/hr Admin: 01/17/19 20:13 Dose: 125 mls/hr Losartan Potassium (Cozaar) 50 mg PO DAILY [facility] Last Admin: 01/19/19 08:38 Dose: 50 mg Admin: 01/18/19 08:40 Dose: 50 mg Magnesium Hydroxide (Milk Of Magnesia) 30 ml PO BID PRN PRN Reason: Constipation Melatonin (Melatonin) 9 mg PO BEDTIME [facility] Last Admin: 01/18/19 21:11 Dose: 9 mg Metoprolol Tartrate (Lopressor) 25 mg PO BID [facility] Last Admin: 01/19/19 08:39 Dose: 25 mg Admin: 01/18/19 21:11 Dose: Not Given Admin: 01/18/19 08:40 Dose: 25 mg Admin: 01/17/19 21:37 Dose: Morphine Sulfate (Morphine) 2 mg IVPUSH Q1H PRN PRN Reason: Breakthrough Pain Last Admin: 01/17/19 20:11 Dose: 2 mg Ondansetron HCl (Zofran) 4 mg IVPUSH Q6H PRN PRN Reason: Nausea/Vomiting Oxybutynin Chloride (Oxybutynin) 5 mg PO DAILY [facility] Last Admin: 01/19/19 08:40 Dose: 5 mg Admin: 01/18/19 08:41 Dose: 5 mg Oxycodone/Acetaminophen (Percocet 325-5 Mg) 1 - 2 tab PO Q4H PRN PRN Reason: Pain Last Admin: 01/19/19 08:52 Dose: 1 tab Admin: 01/19/19 04:20 Dose: 1 tab Admin: 01/18/19 18:42 Dose: 1 tab Admin: 01/18/19 14:51 Dose: 1 tab Admin: 01/18/19 10:33 Dose: 1 tab Admin: 01/18/19 06:30 Dose: 1 tab Admin: 01/17/19 21:28 Dose: 2 tab Tramadol HCl (Ultram) 50 mg PO Q4H PRN PRN Reason: Pain (mild 1-3) - Assessment Assessment (Free Text/Narrative):: Low urinary output overnight, otherwise very stable and tolerated surgery well. Decreased H/H, transfused two units with Lasix between units. Will continue to monitor urine output. - Plan Plan (Free Text/Narrative):: Follow H/H and renal function. Start PT/OT, partial weight bearing on left leg , no weight bearing on left arm. Start discharge planning, ideally to rehab facility associated with her place of residence.
--- NOTE | 2019-01-19 13:58 | PCM.CONSN ---
- General Info Date of Service: 01/19/19 Subjective Update: Ms. Adair has been stable over the last 24 hours. Vital signs have been within desired range and urine output has improved. Labs from this morning show significant hypocalcemia, confirmed with ionized calcium level. - Review of Systems General: Reports: Weakness. Denies: Fever, Chills Pulmonary: Reports: No Symptoms Cardiovascular: Reports: No Symptoms Gastrointestinal: Reports: No Symptoms Musculoskeletal: Reports: Leg Pain - Patient Data Vitals - Most Recent: Last Vital Signs Temp 96.4 F 01/19/19 10:00 Pulse 74 01/19/19 10:00 Resp 11 L 01/19/19 08:00 BP 118/46 L 01/19/19 08:39 Pulse Ox 96 01/19/19 08:00 Weight - Most Recent: 119 lb 15.997 oz I&O - Last 24 Hours: Intake & Output 01/18/19 01/19/19 01/19/19 22:59 06:59 14:59 Intake Total 1960 2002 Output Total 415 640 Balance 1545 1363 Lab Results Last 24 Hours: Laboratory Results - last 24 hr 01/19/19 01/19/19 Range/Units 05:00 08:35 Sodium 133 L (140-148) mmol/L Potassium 4.5 (3.6-5.2) mmol/L Chloride 103 (100-108) mmol/L Carbon Dioxide 23 (21-32) mmol/L Anion Gap 11.5 (5.0-14.0) mmol/L BUN 41 H (7-18) mg/dL Creatinine 1.7 H (0.6-1.0) mg/dL Est Cr Clr Drug Dosing 17.93 mL/min Estimated GFR (MDRD) 28 L (>60) Glucose 100 (74-106) mg/dL Calcium 6.8 L* (8.5-10.1) mg/dL POC WB Ioniz Calcium 0.96 L* (1.12-1.32) mmol/L Med Orders - Current: Current Medications Cyanocobalamin (Vitamin B12) 250 mcg PO DAILY [facility] Last Admin: 01/19/19 08:40 Dose: 250 mcg Docusate Sodium (Colace) 100 mg PO BID PRN PRN Reason: Constipation Enoxaparin Sodium (Lovenox) 30 mg SUBCUT DAILY [facility] Last Admin: 01/19/19 08:39 Dose: 30 mg Furosemide (Lasix) 20 mg PO DAILY [facility] Last Admin: 01/19/19 08:39 Dose: 20 mg Calcium Gluconate 2 gm/ Sodium (Chloride) 120 mls @ 100 mls/hr IV ONETIME ONE Stop: 01/19/19 19:11 Losartan Potassium (Cozaar) 50 mg PO DAILY [facility] Last Admin: 01/19/19 08:38 Dose: 50 mg Magnesium Hydroxide (Milk Of Magnesia) 30 ml PO BID PRN PRN Reason: Constipation Melatonin (Melatonin) 9 mg PO BEDTIME [facility] Last Admin: 01/18/19 21:11 Dose: 9 mg Metoprolol Tartrate (Lopressor) 25 mg PO BID [facility] Last Admin: 01/19/19 08:39 Dose: 25 mg Morphine Sulfate (Morphine) 2 mg IVPUSH Q1H PRN PRN Reason: Breakthrough Pain Last Admin: 01/17/19 20:11 Dose: 2 mg Ondansetron HCl (Zofran) 4 mg IVPUSH Q6H PRN PRN Reason: Nausea/Vomiting Oxybutynin Chloride (Oxybutynin) 5 mg PO DAILY [facility] Last Admin: 01/19/19 08:40 Dose: 5 mg Oxycodone/Acetaminophen (Percocet 325-5 Mg) 1 - 2 tab PO Q4H PRN PRN Reason: Pain Last Admin: 01/19/19 13:05 Dose: 1 tab Tramadol HCl (Ultram) 50 mg PO Q4H PRN PRN Reason: Pain (mild 1-3) Discontinued Medications Bupivacaine HCl (Marcaine 0.5%) Confirm Administered Dose 50 ml .ROUTE .STK-MED ONE Stop: 01/17/19 13:41 Cefazolin Sodium (Ancef) Confirm Administered Dose 2 gm .ROUTE .STK-MED ONE Stop: 01/17/19 14:44 Dexamethasone (Dexamethasone) Confirm Administered Dose 4 mg .ROUTE .STK-MED ONE Stop: 01/17/19 13:48 Fentanyl (Sublimaze) 50 mcg IVPUSH ONETIME ONE Stop: 01/17/19 11:50 Last Admin: 01/17/19 11:55 Dose: 50 mcg Fentanyl (Sublimaze) Confirm Administered Dose 250 mcg .ROUTE .STK-MED ONE Stop: 01/17/19 13:49 Furosemide (Lasix) 20 mg IVPUSH ONETIME ONE Stop: 01/18/19 02:17 Last Admin: 01/18/19 04:12 Dose: 20 mg Glycopyrrolate (Robinul) Confirm Administered Dose 1 mg .ROUTE .STK-MED ONE Stop: 01/17/19 13:48 Sodium Chloride (Normal Saline) 1,000 mls @ 125 mls/hr IV ASDIRECTED [facility] Last Admin: 01/19/19 13:43 Dose: 125 mls/hr Sodium Chloride (Normal Saline) 500 mls @ 500 mls/hr IV .BOLUS ONE Stop: 01/17/19 22:50 Last Admin: 01/17/19 22:11 Dose: 500 mls/hr Sodium Chloride (Normal Saline) 500 mls @ 999 mls/hr IV .BOLUS ONE Stop: 01/18/19 00:51 Last Admin: 01/18/19 00:30 Dose: 999 mls/hr Sodium Chloride (Normal Saline) 1,000 mls @ 240 mls/hr IV ASDIRECTED [facility] Stop: 01/18/19 22:09 Calcium Gluconate 2 gm/ Sodium (Chloride) 120 mls @ 100 mls/hr IV ONETIME ONE Stop: 01/19/19 10:41 Last Admin: 01/19/19 09:30 Dose: 100 mls/hr Neostigmine Methylsulfate (Neostigmine) Confirm Administered Dose 5 mg .ROUTE .STK-MED ONE Stop: 01/17/19 13:48 Non-Formulary Medication (Melatonin [Melatonin]) 10 mg PO BEDTIME [facility] Non-Formulary Medication (Cyanocobalamin (Vitamin B12) [Vitamin B12]) 100 mcg PO DAILY [facility] Ondansetron HCl (Zofran) Confirm Administered Dose 4 mg .ROUTE .STK-MED ONE Stop: 01/17/19 13:48 Propofol (Diprivan 20 Ml) Confirm Administered Dose 200 mg .ROUTE .STK-MED ONE Stop: 01/17/19 13:48 Rocuronium [place] (Zemuron) Confirm Administered Dose 50 mg .ROUTE .STK-MED ONE Stop: 01/17/19 13:48 Succinylcholine Chloride (Quelicin) Confirm Administered Dose 200 mg .ROUTE .STK -MED ONE Stop: 01/17/19 13:48 - Exam Quality Assessment: DVT Prophylaxis General: Alert, Oriented, Cooperative, Mild Distress Lungs: Clear to Auscultation, Normal Respiratory Effort Cardiovascular: Regular Rate, Regular Rhythm, No Murmurs GI/Abdominal Exam: Soft, Non-Tender, No Organomegaly, No Distention Extremities: No Pedal Edema, Leg Pain Consult PN Assessment/Plan Problem List Initiated/Reviewed/Updated: Yes My Orders Last 24 Hours: My Active Orders 01/19/19 13:50 Convert IV to Saline Lock [OM.PC] Routine 01/19/19 13:51 Remove Soriano Catheter [Urinary Catheter Removal] [RC] Per Unit Routine 01/19/19 18:00 Calcium Gluconate 2 gm Sodium Chloride 0.9% [Normal Saline] 100 ml IV ONETIME 01/20/19 05:00 BASIC METABOLIC PANEL,BMP [CHEM] Timed CALCIUM IONIZED,ISTAT [POC] Timed Plan: ASSESSMENT AND RECOMMENDATIONS LEFT HUMERUS AND HIP FRACTURES-status post surgical repair 01/[address] De Jesus. Urine output has improved over the last 24 hours -postoperative care per Dr. De Jesus LOW URINE OUTPUT-likely secondary to third spacing related to recent surgery and fractures. Urine output improved -Continue to monitor closely -Saline lock IV HYPERTENSION-overall blood pressure has remained stable -Continue outpatient medications HYPOCALCEMIA-confirmed with ionized calcium -IV calcium gluconate given in a.m. and will be repeated this evening -Reassess calcium and ionized calcium levels in a.m.
[2019-01-19] MEDS: Melatonin 3 MG Tab PO SCH (21:06)
[2019-01-19] MEDS: Docusate Sodium 100 MG Cap PO PRN (21:12)
[2019-01-19] MEDS: Calcium Carbonate 500 MG Tab.Chew PO PRN (21:39)
[2019-01-20] MEDS ORDERED: Simethicone 80 MG Tab.Chew PO PRN (00:19)
[2019-01-20] MEDS: Aluminum Hydroxide/Magnesium Hydroxide/Simethicone Susp 30 ML Cup PO PRN ×2 (00:46→07:48)
[2019-01-20] MEDS ORDERED: Ondansetron 4 MG Tab.DIS PO PRN (08:21)
[2019-01-20] MEDS: Losartan 50 MG Tab PO SCH (08:44)
[2019-01-20] MEDS: Metoprolol Tartrate 25 MG Tab PO SCH ×2 (08:45→20:12)
[2019-01-20] MEDS: Furosemide 20 MG Tab PO SCH (08:45)
[2019-01-20] MEDS: Cyanocobalamin (Vitamin B12) 1,000 MCG Tab PO SCH (08:46)
[2019-01-20] MEDS: Oxybutynin 5 MG Tab PO SCH (08:46)
[2019-01-20] MEDS: Enoxaparin 30 MG/0.3 ML Syringe SUBCUT SCH (08:46)
[2019-01-20] MEDS ORDERED: Sodium Phosphate,Monobasic/Sodium Phosphate,Dibasic Enema 133 ML Bottle RECTAL PRN (11:58)
[2019-01-20] MEDS ORDERED: Bisacodyl 10 MG Supp RECTAL ONE (11:58)
--- NOTE | 2019-01-20 12:07 | PCM.CONSN ---
- General Info Date of Service: 01/20/19 Subjective Update: Ms. Adair continues to slowly progress. She has experienced some reflux at this morning that has left her uncomfortable and continues to struggle with constipation. Functional Status: Reports: Tolerating Diet - Review of Systems General: Reports: Weakness. Denies: Fever, Chills Pulmonary: Reports: No Symptoms Cardiovascular: Reports: No Symptoms Gastrointestinal: Reports: Constipation, Other (Bloating). Denies: Difficulty Swallowing, Nausea, Vomiting - Patient Data Vitals - Most Recent: Last Vital Signs Temp 98.7 F 01/20/19 10:52 Pulse 87 01/20/19 10:52 Resp 19 01/20/19 10:52 BP 135/96 H 01/20/19 10:52 Pulse Ox 97 01/20/19 10:52 Weight - Most Recent: 119 lb 15.997 oz I&O - Last 24 Hours: Intake & Output 01/19/19 01/20/19 01/20/19 22:59 06:59 14:59 Intake Total 1307 300 480 Output Total 900 1200 Balance 407 -900 480 Lab Results Last 24 Hours: Laboratory Results - last 24 hr 01/20/19 01/20/19 Range/Units 05:00 05:00 Sodium 136 L (140-148) mmol/L Potassium 4.6 (3.6-5.2) mmol/L Chloride 106 (100-108) mmol/L Carbon Dioxide 24 (21-32) mmol/L Anion Gap 10.6 (5.0-14.0) mmol/L BUN 31 H (7-18) mg/dL Creatinine 1.1 H (0.6-1.0) mg/dL Est Cr Clr Drug Dosing 27.72 mL/min Estimated GFR (MDRD) 47 L (>60) Glucose 104 (74-106) mg/dL Calcium 7.6 L (8.5-10.1) mg/dL POC WB Ioniz Calcium 1.12 (1.12-1.32) mmol/L Med Orders - Current: Current Medications Al Hydroxide/Mg Hydroxide (Mag-Al Plus) 30 ml PO Q4H PRN PRN Reason: Indigestion Last Admin: 01/20/19 07:48 Dose: 30 ml Bisacodyl (Dulcolax) 10 mg RECTAL ONETIME ONE Stop: 01/20/19 11:59 Calcium Carbonate/Glycine (Tums) 1,000 mg PO Q2H PRN PRN Reason: Indigestion Last Admin: 01/19/19 21:39 Dose: 1,000 mg Cyanocobalamin (Vitamin B12) 250 mcg PO DAILY [facility] Last Admin: 01/20/19 08:46 Dose: 250 mcg Docusate Sodium (Colace) 100 mg PO BID PRN PRN Reason: Constipation Last Admin: 01/19/19 21:12 Dose: 100 mg Enoxaparin Sodium (Lovenox) 30 mg SUBCUT DAILY [facility] Last Admin: 01/20/19 08:46 Dose: 30 mg Furosemide (Lasix) 20 mg PO DAILY [facility] Last Admin: 01/20/19 08:45 Dose: 20 mg Losartan Potassium (Cozaar) 50 mg PO DAILY [facility] Last Admin: 01/20/19 08:44 Dose: 50 mg Magnesium Hydroxide (Milk Of Magnesia) 30 ml PO BID PRN PRN Reason: Constipation Last Admin: 01/20/19 07:48 Dose: 30 ml Melatonin (Melatonin) 9 mg PO BEDTIME [facility] Last Admin: 01/19/19 21:06 Dose: 9 mg Metoprolol Tartrate (Lopressor) 25 mg PO BID [facility] Last Admin: 01/20/19 08:45 Dose: 25 mg Morphine Sulfate (Morphine) 2 mg IVPUSH Q1H PRN PRN Reason: Breakthrough Pain Last Admin: 01/17/19 20:11 Dose: 2 mg Ondansetron HCl (Zofran) 4 mg IVPUSH Q6H PRN PRN Reason: Nausea/Vomiting Ondansetron HCl (Zofran Odt) 4 mg PO Q4H PRN PRN Reason: Nausea/Vomiting Oxybutynin Chloride (Oxybutynin) 5 mg PO DAILY [facility] Last Admin: 01/20/19 08:46 Dose: 5 mg Oxycodone/Acetaminophen (Percocet 325-5 Mg) 1 - 2 tab PO Q4H PRN PRN Reason: Pain Last Admin: 01/19/19 17:39 Dose: 1 tab [facility] Stop: 01/20/19 16:31 Pantoprazole Sodium (Protonix) 40 mg PO DAILY [facility] Simethicone (Simethicone) 80 mg PO Q4H PRN PRN Reason: Heartburn Sodium Biphosphate/Sodium Phosphate (Fleet Enema) 133 ml RECTAL ONETIME PRN PRN Reason: Constipation Tramadol HCl (Ultram) 50 mg PO Q4H PRN PRN Reason: Pain (mild 1-3) Discontinued Medications Bupivacaine HCl (Marcaine 0.5%) Confirm Administered Dose 50 ml .ROUTE .STK-MED ONE Stop: 01/17/19 13:41 Cefazolin Sodium (Ancef) Confirm Administered Dose 2 gm .ROUTE .STK-MED ONE Stop: 01/17/19 14:44 Dexamethasone (Dexamethasone) Confirm Administered Dose 4 mg .ROUTE .STK-MED ONE Stop: 01/17/19 13:48 Fentanyl (Sublimaze) 50 mcg IVPUSH ONETIME ONE Stop: 01/17/19 11:50 Last Admin: 01/17/19 11:55 Dose: 50 mcg Fentanyl (Sublimaze) Confirm Administered Dose 250 mcg .ROUTE .STK-MED ONE Stop: 01/17/19 13:49 Furosemide (Lasix) 20 mg IVPUSH ONETIME ONE Stop: 01/18/19 02:17 Last Admin: 01/18/19 04:12 Dose: 20 mg Glycopyrrolate (Robinul) Confirm Administered Dose 1 mg .ROUTE .STK-MED ONE Stop: 01/17/19 13:48 Sodium Chloride (Normal Saline) 1,000 mls @ 125 mls/hr IV ASDIRECTED [facility] Last Admin: 01/19/19 13:43 Dose: 125 mls/hr Sodium Chloride (Normal Saline) 500 mls @ 500 mls/hr IV .BOLUS ONE Stop: 01/17/19 22:50 Last Admin: 01/17/19 22:11 Dose: 500 mls/hr Sodium Chloride (Normal Saline) 500 mls @ 999 mls/hr IV .BOLUS ONE Stop: 01/18/19 00:51 Last Admin: 01/18/19 00:30 Dose: 999 mls/hr Sodium Chloride (Normal Saline) 1,000 mls @ 240 mls/hr IV ASDIRECTED [facility] Stop: 01/18/19 22:09 Calcium Gluconate 2 gm/ Sodium (Chloride) 120 mls @ 100 mls/hr IV ONETIME ONE Stop: 01/19/19 10:41 Last Admin: 01/19/19 09:30 Dose: 100 mls/hr Calcium Gluconate 2 gm/ Sodium (Chloride) 120 mls @ 100 mls/hr IV ONETIME ONE Stop: 01/19/19 19:11 Last Admin: 01/19/19 17:42 Dose: 100 mls/hr Neostigmine Methylsulfate (Neostigmine) Confirm Administered Dose 5 mg .ROUTE .STK-MED ONE Stop: 01/17/19 13:48 Non-Formulary Medication (Melatonin [Melatonin]) 10 mg PO BEDTIME [facility] Non-Formulary Medication (Cyanocobalamin (Vitamin B12) [Vitamin B12]) 100 mcg PO DAILY [facility] Ondansetron HCl (Zofran) Confirm Administered Dose 4 mg .ROUTE .STK-MED ONE Stop: 01/17/19 13:48 Propofol (Diprivan 20 Ml) Confirm Administered Dose 200 mg .ROUTE .STK-MED ONE Stop: 01/17/19 13:48 Rocuronium [place] (Zemuron) Confirm Administered Dose 50 mg .ROUTE .STK-MED ONE Stop: 01/17/19 13:48 Succinylcholine Chloride (Quelicin) Confirm Administered Dose 200 mg .ROUTE .STK -MED ONE Stop: 01/17/19 13:48 - Exam Quality Assessment: DVT Prophylaxis General: Alert, Oriented, Cooperative, Mild Distress Lungs: Clear to Auscultation, Normal Respiratory Effort Cardiovascular: Regular Rate, Regular Rhythm, No Murmurs GI/Abdominal Exam: Normal Bowel Sounds, Soft, No Organomegaly, Distended, Tender. No: Guarding, Rigid, Rebound Consult PN Assessment/Plan Problem List Initiated/Reviewed/Updated: Yes My Orders Last 24 Hours: My Active Orders 01/19/19 13:50 Convert IV to Saline Lock [OM.PC] Routine 01/20/19 08:26 Remove Soriano Catheter [Urinary Catheter Removal] [RC] Per Unit Routine 01/20/19 11:58 Bisacodyl [Dulcolax] 10 mg RECTAL ONETIME ONE Na Phos,M-B/Na Phos,DI-B [Fleet Enema] 133 ml RECTAL ONETIME PRN Pantoprazole [ProTONIX] 40 mg PO BIDAC 01/21/19 09:00 Pantoprazole [ProTONIX] 40 mg PO DAILY Plan: ASSESSMENT AND RECOMMENDATIONS LEFT HUMERUS AND HIP FRACTURES-status post surgical repair 01/[address] De Jesus. Urine output has improved over the last 24 hours -postoperative care per Dr. De Jesus LOW URINE OUTPUT-resolved -Remove Soriano catheter HYPERTENSION-overall blood pressure has remained stable -Continue outpatient medications CONSTIPATION-persistent symptoms despite oral medication -Dulcolax suppository -Fleet enema if no results from suppository HYPOCALCEMIA-resolved
[2019-01-20] MEDS: Docusate Sodium 100 MG Cap PO PRN ×2 (12:25→20:14)
[2019-01-20] MEDS: Pantoprazole 40 MG Tab.CR PO SCH ×2 (12:25→16:02)
[2019-01-20] MEDS: traMADol 50 MG Tab PO PRN ×2 (14:24→23:14)
[2019-01-20] MEDS: Melatonin 3 MG Tab PO SCH (20:14)
[2019-01-21] MEDS: Calcium Carbonate 500 MG Tab.Chew PO PRN (06:10)
[2019-01-21] MEDS ORDERED: Pantoprazole 40 MG Tab.CR PO SCH (07:30)
[2019-01-21] MEDS: Aluminum Hydroxide/Magnesium Hydroxide/Simethicone Susp 30 ML Cup PO PRN (08:05)
[2019-01-21] MEDS: Furosemide 20 MG Tab PO SCH (08:06)
[2019-01-21] MEDS: Metoprolol Tartrate 25 MG Tab PO SCH (08:06)
[2019-01-21] MEDS: Enoxaparin 30 MG/0.3 ML Syringe SUBCUT SCH (08:08)
[2019-01-21] MEDS: Oxybutynin 5 MG Tab PO SCH (08:08)
[2019-01-21] MEDS: Cyanocobalamin (Vitamin B12) 1,000 MCG Tab PO SCH (08:09)
[2019-01-21] MEDS: Losartan 50 MG Tab PO SCH (10:08)
--- NOTE | 2019-01-21 11:46 | PCM.DCSUM1 ---
Discharge Summary - Hospital Course Brief History: Ms. Adair is an 88 year old woman who was admitted through the ED with left hip and arm pain secondary to fractures of the left humerus and left femur, experienced secondary to a fall. Diagnosis: Stroke: No - Discharge Data Discharge Date: 01/21/19 Discharge Disposition: DC/Tfer to SNF 03 Condition: Stable - Discharge Diagnosis/Problem(s) (1) Intertrochanteric fracture of left hip SNOMED Code(s): 569735880 ICD Code: S72.142A - DISPLACED INTERTROCHANTERIC FRACTURE OF LEFT FEMUR, INIT Status: Acute Current Visit: Yes Qualifiers: Encounter type: initial encounter Fracture type: closed Fracture alignment: displaced Qualified Code(s): S72.142A - Displaced intertrochanteric fracture of left femur, initial encounter for closed fracture (2) Left humeral fracture SNOMED Code(s): 62657380 ICD Code: S42.302A - UNSP FRACTURE OF SHAFT OF HUMERUS, LEFT ARM, INIT Status: Acute Current Visit: Yes Qualifiers: Encounter type: initial encounter Humerus Location: shaft Fracture type: closed Fracture morphology: comminuted Fracture alignment: displaced Qualified Code(s): S42.352A - Displaced comminuted fracture of shaft of humerus , left arm, initial encounter for closed fracture (3) Postoperative anemia due to acute blood loss SNOMED Code(s): 93931612399454399 ICD Code: D62 - ACUTE POSTHEMORRHAGIC ANEMIA Status: Acute Current Visit : Yes Problem Details: Secondary to fractures and surgery - Patient Summary/Data Consults: Consultations 01/17/19 18:34 Consult to Case Management/Pig Machine Operator [CONS] Routine Comment: Physician Instructions: Service(s) to be Consulted: Case Management Reason for Consult: Plan for Discharge OT Evaluation and Treatment [CONS] Routine Please Evaluate and Treat. OT Reason for Consult: ADL's Pending Discharge: Yes Discharge Disposition: [facility] Special Instructions: ADLs and adaptive devices This query below is only for informational purposes and is not editable. Admission Diagnosis/Problem: Hip fracture requiring operative repair PT Evaluation and Treatment [CONS] Routine Please Evaluate and Treat. PT Reason for Consult: Post op Ortho Surgery Pending Discharge: Yes Discharge Disposition: [facility] Special Instructions: Partial weight bearing on left hip, non-weight bearing on left arm This query below is only for informational purposes and is not editable. Admission Diagnosis/Problem: Hip fracture requiring operative repair 01/17/19 19:04 Consult to Physician [CONS] Routine Consulting Provider: Alo Carrillo Call Completed to Consulting Physician: Yes Reason for Consult: assist with post management, HTN, valvular heart disease Date Notified: 01/17/19 Time Notified: 07:10 Hospital Course: Ms. Adair is an 88-year-old woman who was admitted through the emergency department with left arm and hip pain secondary to fracture of the left humerus and intertrochanteric fracture of the left femur. She unfortunately fell on the day of admission resulting in these injuries. Fractures were documented on x- rays obtained in the emergency department. She was seen and evaluated by Dr. De Jesus while in the emergency department, then admitted to the hospital. She was given IV fluids for hydration as well as medication as needed for pain. She was taken to the operating room by Dr. De Jesus and underwent surgical repair of both fractures with plating of the humerus and intramedullary fixation of the left hip fracture. Postoperative course was complicated by lower blood pressures and decreased urine output as well as anemia secondary to acute blood loss from surgery as well as the fractures. She was transfused 2 units of red blood cells. With IV fluids blood pressure and urine output also stabilized and renal function improved prior to discharge. She did experience some difficulty with constipation in the postoperative period but did have bowel movement prior to transfer. Soriano catheter was placed prior to surgery and removed on the day prior to discharge. Initially she did have some difficulty with urination but this seemed to improve prior to discharge. She was seen daily by physical therapy and occupational therapy while in the hospital. She is instructed to have no use or weightbearing of the left upper extremity, partial weightbearing of the left lower extremity. Otherwise activity will be as tolerated and she will resume her usual diet. She will be discharged to rehabilitation facility for restorative physical therapy and occupational therapy. Orthopedic follow-up will be arranged for her in [place]. - Patient Instructions Diet: Usual Diet as Tolerated Activity: Partial Weight Bearing Activity, Other: 50 % weight bearing on left leg, ROM as tolerated Driving: Do Not Drive Showering/Bathing: May Shower Notify Provider of: Fever, Increased Pain, Swelling and Redness, Drainage Other/Special Instructions: ROM of hand, wrist and elbow as tolerated, no weight bearing on left arm. Follow up with Ortho approx. 3 weeks for x-rays - Discharge Plan *PRESCRIPTION DRUG MONITORING PROGRAM REVIEWED*: No *COPY OF PRESCRIPTION DRUG MONITORING REPORT IN PATIENT JOJO: No Prescriptions/Med Rec: Acetaminophen/oxyCODONE [Percocet 325-5 MG] 1 tab PO Q4H PRN #30 tablet PRN Reason: Pain Home Medications: Home Meds Aspirin 81 mg PO DAILY 01/17/19 [History] Ca Carbonate/Vitamin D3/Vit K [Citracal Soft Chew] 1 each PO DAILY 01/17/19 [ History] Cyanocobalamin (Vitamin B12) [Vitamin B12] 100 mcg PO DAILY 01/17/19 [History] Ferrous Sulfate 325 mg PO DAILY 01/17/19 [History] Furosemide [Lasix] 20 mg PO DAILY 01/17/19 [History] L.acidoph,Paracasei, B.lactis [Probiotic] 1 each PO DAILY 01/17/19 [History] Lmfol Ca/Acetyl/Mb12/Algal Oil [Cerefolin Nac Caplet] 1 each PO DAILY 01/17/19 [ History] Melatonin 10 mg PO BEDTIME 01/17/19 [History] Metoprolol Tartrate 25 mg PO BID 01/17/19 [History] Olmesartan Medoxomil [Benicar] 20 mg PO DAILY 01/17/19 [History] Oxybutynin 5 mg PO DAILY 01/17/19 [History] Triamcinolone Acetonide [Triamcinolone Acetonide 0.1% Crm] 1 applic TOP TID [History] Vit A/Vit C/Vit E/Zinc/Copper [Preservision] 1 each PO DAILY 01/17/19 [History] Acetaminophen/oxyCODONE [Percocet 325-5 MG] 1 tab PO Q4H PRN #30 tablet [Rx] Oxygen Therapy Mode: Room Air - Discharge Summary/Plan Comment DC Time >30 min.: No - Patient Data Vitals - Most Recent: Last Vital Signs Temp 98.3 F 01/21/19 11:00 Pulse 80 01/21/19 11:00 Resp 18 01/21/19 11:00 BP 120/54 L 01/21/19 11:00 Pulse Ox 99 01/21/19 11:00 Weight - Most Recent: 119 lb 15.997 oz I&O - Last 24 hours: Intake & Output 01/20/19 01/21/19 01/21/19 22:59 06:59 14:59 Intake Total 260 200 Output Total 1000 300 Balance 260 -800 -300 Med Orders - Current: Current Medications Al Hydroxide/Mg Hydroxide (Mag-Al Plus) 30 ml PO Q4H PRN PRN Reason: Indigestion Last Admin: 01/21/19 08:05 Dose: 30 ml Calcium Carbonate/Glycine (Tums) 1,000 mg PO Q2H PRN PRN Reason: Indigestion Last Admin: 01/21/19 06:10 Dose: 1,000 mg Cyanocobalamin (Vitamin B12) 250 mcg PO DAILY [facility] Last Admin: 01/21/19 08:09 Dose: 250 mcg Docusate Sodium (Colace) 100 mg PO BID PRN PRN Reason: Constipation Last Admin: 01/20/19 20:14 Dose: 100 mg Enoxaparin Sodium (Lovenox) 30 mg SUBCUT DAILY [facility] Last Admin: 01/21/19 08:08 Dose: 30 mg Furosemide (Lasix) 20 mg PO DAILY [facility] Last Admin: 01/21/19 08:06 Dose: 20 mg Losartan Potassium (Cozaar) 50 mg PO DAILY [facility] Last Admin: 01/21/19 10:08 Dose: 50 mg Magnesium Hydroxide (Milk Of Magnesia) 30 ml PO BID PRN PRN Reason: Constipation Last Admin: 01/20/19 07:48 Dose: 30 ml Melatonin (Melatonin) 9 mg PO BEDTIME [facility] Last Admin: 01/20/19 20:14 Dose: 9 mg Metoprolol Tartrate (Lopressor) 25 mg PO BID [facility] Last Admin: 01/21/19 08:06 Dose: 25 mg Morphine Sulfate (Morphine) 2 mg IVPUSH Q1H PRN PRN Reason: Breakthrough Pain Last Admin: 01/17/19 20:11 Dose: 2 mg Ondansetron HCl (Zofran) 4 mg IVPUSH Q6H PRN PRN Reason: Nausea/Vomiting Ondansetron HCl (Zofran Odt) 4 mg PO Q4H PRN PRN Reason: Nausea/Vomiting Oxybutynin Chloride (Oxybutynin) 5 mg PO DAILY [facility] Last Admin: 01/21/19 08:08 Dose: 5 mg Oxycodone/Acetaminophen (Percocet 325-5 Mg) 1 - 2 tab PO Q4H PRN PRN Reason: Pain Last Admin: 01/19/19 17:39 Dose: 1 tab Pantoprazole Sodium (Protonix) 40 mg PO DAILY@0730 [facility] Last Admin: 01/21/19 08:06 Dose: 40 mg Simethicone (Simethicone) 80 mg PO Q4H PRN PRN Reason: Heartburn Sodium Biphosphate/Sodium Phosphate (Fleet Enema) 133 ml RECTAL ONETIME PRN PRN Reason: Constipation Tramadol HCl (Ultram) 50 mg PO Q4H PRN PRN Reason: Pain (mild 1-3) Last Admin: 01/20/19 23:14 Dose: 50 mg Discontinued Medications Bisacodyl (Dulcolax) 10 mg RECTAL ONETIME ONE Stop: 01/20/19 11:59 Last Admin: 01/20/19 14:24 Dose: 10 mg Bupivacaine HCl (Marcaine 0.5%) Confirm Administered Dose 50 ml .ROUTE .STK-MED ONE Stop: 01/17/19 13:41 Cefazolin Sodium (Ancef) Confirm Administered Dose 2 gm .ROUTE .STK-MED ONE Stop: 01/17/19 14:44 Dexamethasone (Dexamethasone) Confirm Administered Dose 4 mg .ROUTE .STK-MED ONE Stop: 01/17/19 13:48 Fentanyl (Sublimaze) 50 mcg IVPUSH ONETIME ONE Stop: 01/17/19 11:50 Last Admin: 01/17/19 11:55 Dose: 50 mcg Fentanyl (Sublimaze) Confirm Administered Dose 250 mcg .ROUTE .STK-MED ONE Stop: 01/17/19 13:49 Furosemide (Lasix) 20 mg IVPUSH ONETIME ONE Stop: 01/18/19 02:17 Last Admin: 01/18/19 04:12 Dose: 20 mg Glycopyrrolate (Robinul) Confirm Administered Dose 1 mg .ROUTE .STK-MED ONE Stop: 01/17/19 13:48 Sodium Chloride (Normal Saline) 1,000 mls @ 125 mls/hr IV ASDIRECTED [facility] Last Admin: 01/19/19 13:43 Dose: 125 mls/hr Sodium Chloride (Normal Saline) 500 mls @ 500 mls/hr IV .BOLUS ONE Stop: 01/17/19 22:50 Last Admin: 01/17/19 22:11 Dose: 500 mls/hr Sodium Chloride (Normal Saline) 500 mls @ 999 mls/hr IV .BOLUS ONE Stop: 01/18/19 00:51 Last Admin: 01/18/19 00:30 Dose: 999 mls/hr Sodium Chloride (Normal Saline) 1,000 mls @ 240 mls/hr IV ASDIRECTED STEPHANIE Stop: 01/18/19 22:09 Calcium Gluconate 2 gm/ Sodium (Chloride) 120 mls @ 100 mls/hr IV ONETIME ONE Stop: 01/19/19 10:41 Last Admin: 01/19/19 09:30 Dose: 100 mls/hr Calcium Gluconate 2 gm/ Sodium (Chloride) 120 mls @ 100 mls/hr IV ONETIME ONE Stop: 01/19/19 19:11 Last Admin: 01/19/19 17:42 Dose: 100 mls/hr Neostigmine Methylsulfate (Neostigmine) Confirm Administered Dose 5 mg .ROUTE .STK-MED ONE Stop: 01/17/19 13:48 Non-Formulary Medication (Melatonin [Melatonin]) 10 mg PO BEDTIME [facility] Non-Formulary Medication (Cyanocobalamin (Vitamin B12) [Vitamin B12]) 100 mcg PO DAILY [facility] Ondansetron HCl (Zofran) Confirm Administered Dose 4 mg .ROUTE .STK-MED ONE Stop: 01/17/19 13:48 Pantoprazole Sodium (Protonix) 40 mg PO BIDAC STEPHANIE Stop: 01/20/19 16:31 Last Admin: 01/20/19 16:02 Dose: 40 mg Propofol (Diprivan 20 Ml) Confirm Administered Dose 200 mg .ROUTE .STK-MED ONE Stop: 01/17/19 13:48 Rocuronium [place] (Zemuron) Confirm Administered Dose 50 mg .ROUTE .STK-MED ONE Stop: 01/17/19 13:48 Succinylcholine Chloride (Quelicin) Confirm Administered Dose 200 mg .ROUTE .STK -MED ONE Stop: 01/17/19 13:48 - Exam Quality Assessment: Reports: DVT Prophylaxis General: Reports: Alert, Cooperative, Mild Distress Lungs: Reports: Clear to Auscultation, Normal Respiratory Effort Cardiovascular: Reports: Regular Rate, Regular Rhythm, Murmurs GI/Abdominal Exam: Soft, Non-Tender, No Organomegaly, No Distention Extremities: Other (Left arm and hip pain)
[2019-01-21] MEDS: traMADol 50 MG Tab PO PRN (14:28)
--- NOTE | 2019-01-26 21:54 | OR ---
DATE OF PROCEDURE: 01/17/2019 PREOPERATIVE DIAGNOSES: 1. Displaced left intertrochanteric fracture. 2. Comminuted displaced left humeral shaft fracture. POSTOPERATIVE DIAGNOSES: 1. Displaced intertrochanteric fracture, left hip. 2. Displaced comminuted left humeral shaft fracture. PROCEDURES: 1. Closed reduction and intramedullary fixation, left hip, using Synthes TFN device. 2. Open reduction and internal fixation of the left humeral shaft with addition of a femoral strut bone graft. ANESTHESIA: General. INDICATIONS: Reina is an 88-year-old female visiting the area from [facility], who sustained a fall while attempting to get out of the shower, landing onto her left side. Evaluation in the emergency room reveals a displaced intertrochanteric fracture of the left hip as well as a displaced comminuted fracture of the proximal humeral shaft on the left. She is now taken to the operating room for open reduction and internal fixation of both of these fractures to allow early mobilization. Risks, benefits, and potential complications were discussed with the patient and the patient's daughter. Both agreed to the plan. PROCEDURE IN DETAIL: After adequate anesthesia was obtained, patient was placed on the fracture table. Both feet were placed in the traction boots. A longitudinal traction placed on the left leg and a weight stabilizing traction placed on the right leg which was abducted to allow access of the fluoroscopic C-arm. Reduction was evaluated and found to be near anatomic. The left hip was then prepped and draped in a sterile fashion. Incision was made from the tip of the greater trochanter slightly superior, carried down to the subcutaneous tissues and the tensor fascia was then split in line with its fibers. Blunt dissection carried down to the tip of the trochanter. A starting pin was advanced into the trochanter and position confirmed using fluoroscopy. A cannulated reamer was placed over the pin, allowing entrance into the intramedullary canal. The short TFNA nail was selected. This was then passed across the fracture site and position was confirmed using fluoroscopy. A separate stab incision was made just inferior to the trochanter and the cannula was placed through the guide for a spiral blade. This was secured against the lateral cortex and a guidepin was then advanced into the femoral head and neck. Position was confirmed using AP and lateral images. This was measured and the lateral cortex was then drilled. The spiral blade was then advanced into the femoral head and neck. Insertion handle was removed and the blade was then locked in place using the superior set screw. Another small stab incision was then made for placement of the distal locking screw. The cannula was advanced to the bone. The femur was drilled and measured and a distal locking screw was then placed. Final position was confirmed using AP and lateral images. The insertion guide was removed. Incisions were irrigated. Tensor fascia was then closed in a running fashion with #2 Vicryl. Skin was closed with 2-0 Vicryl and a running 3-0 Monocryl. Steri- Strips were applied. Sterile dressings were then taped in place. The patient's legs were then taken out of the traction boots and the patient was placed in the lateral decubitus position and secured using a ruiz bag positioner. The left shoulder and arm were then prepped and draped in a sterile fashion. A posterior approach was utilized to the humeral shaft. This carried down through the subcutaneous tissues and hemostasis obtained with electrocautery. The triceps was divided and dissection carried down identifying the radial nerve. The radial nerve was identified and protected throughout the case. Dissection carried further down to the humeral shaft. This showed significant comminution and displacement. In addition to the 3 larger fragments noted on x- ray, two additional smaller fragments were present. Dissection was carried proximally to the proximal extent of the fracture just at the neck of the humerus. Axillary nerve was identified at this level and protected. Multiple attempts were made to obtain some temporary fixation or reduction using bone clamps of the multiple fragments. 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 Decision was made to reconstruct the humerus around a strut graft. A frozen femoral cortical graft was obtained. This was cut down using an oscillating saw to a size that would fit within the canal of the humerus. This was then inserted initially into the distal shaft and then maneuvered up into the femoral head and neck region spanning the comminuted portion. This gave a foundation to allow reduction of the small comminuted fragments. A Synthes Large Frag plate was then secured using combination of cortical and locking screws. Additional fixation was obtained using 16-gauge wire which was passed around the smaller fragments and up around the portion of the neck fragment. These were tightened, cut, and then bent against the plate. When the final construct was completed, the arm was taken through range of motion. The fracture fragments were stable. The wound was then thoroughly irrigated. Triceps was then closed in a [id number] fashion again taking care to avoid suturing the radial nerve. The skin was then closed with 2 -0 Vicryl and a running 3-0 Monocryl. Steri-Strips were applied. Sterile dressing was then placed. The patient tolerated the procedures very well. There were no complications. She was taken from the operating room in a stable condition. Function of the radial and axillary nerves were confirmed in recovery room. Shukri De Jesus MD /[id number] JOE
== END 2019-01-21 14:41 | DRG 480 ==
LOC: JP.ED 11:40 → JP.SDS 13:38 → UNDOADMIN 18:20 → JP.ICU 18:20 → JP.MS 01-19 14:14
PROVIDERS: ADMIT Specialist; ATTEND Specialist
PROC: 0QS736Z Reposition Left Upper Femur with Intramedullary Internal Fixation Device, Percutaneous Approach (ICD-10-PCS; principal; 2019-01-17)
PROC: 0PSG04Z Reposition Left Humeral Shaft with Internal Fixation Device, Open Approach (ICD-10-PCS; 2019-01-17)
PROC: 30230N1 Transfusion of Nonautologous Red Blood Cells into Peripheral Vein, Open Approach (ICD-10-PCS; 2019-01-17)
DX: S42.352A Displaced comminuted fracture of shaft of humerus, left arm, initial encounter for closed fracture (principal); S72.142A Displaced intertrochanteric fracture of left femur, initial encounter for closed fracture; D62 Acute posthemorrhagic anemia; N99.0 Postprocedural (acute) (chronic) kidney failure; I10 Essential (primary) hypertension; K21.9 Gastro-esophageal reflux disease without esophagitis; R03.1 Nonspecific low blood-pressure reading; E83.51 Hypocalcemia; K59.00 Constipation, unspecified; Z88.5 Allergy status to narcotic agent; Z88.2 Allergy status to sulfonamides; Z88.1 Allergy status to other antibiotic agents; Z88.8 Allergy status to other drugs, medicaments and biological substances; Z87.442 Personal history of urinary calculi; Z98.49 Cataract extraction status, unspecified eye; Z79.82 Long term (current) use of aspirin; Z79.899 Other long term (current) drug therapy; W18.2XXA Fall in (into) shower or empty bathtub, initial encounter; Y92.002 Bathroom of unspecified non-institutional (private) residence as the place of occurrence of the external cause
CPT/HCPCS: 36415; 36430; 51701; 51798; 72170; 72170-26; 73060-26-LT; 73060-LT; 76000; 80048; 80053; 82330; 85025; 85027; 86850; 86900; 86901; 86920; 86922; 93005; 93010; 97110-GO; 97110-GP; 97140-GP; 97162-GP; 97165-GO; 97530-GP; 97535-GP; A9270-GY; C1713; C1776; J0330; J0610; J0690; J1100; J1650; J1940; J2270; J2405; J2704; J2710; J3010; J3490; J7030; J7040; P9016